=== PATIENT | female | born 1990 | race Caucasian/White ===

== ENCOUNTER 2021-07-14 10:25 | Emergency (ER) | payer BC ==
[~2021-07-14] VITALS: Ht 162.6 cm; Wt 68.2 kg
[2021-07-14 20:38] LABS: PLATELET COUNT 59 X10'3 (140-440)
[2021-07-14 20:39] LABS: HEMATOCRIT 31.5 % (35.0-45.0); MEAN CORPUSCULAR HEMOGLOBIN 29.3 PG (27.0-31.0); MEAN CORPUSCULAR VOLUME 83.9 FL (78-98); MEAN PLATELET VOLUME 9.2 FL (7.4-10.4); RED BLOOD COUNT 3.76 X10'6 (4.20-5.60); RED CELL DISTRIBUTION WIDTH 28.3 % (11.5-14.5); WHITE BLOOD COUNT 10.6 X10'3 (4.5-11.0)
[2021-07-14 20:43] LABS: ALANINE AMINOTRANSFERASE 65 U/L (12-78); ALBUMIN 2.2 G/DL (3.4-5.0); ALKALINE PHOSPHATASE 422 IU/L (46-116); AMYLASE 29 U/L (25-115); ANION GAP 10 (8-16); BILIRUBIN,TOTAL 17.1 MG/DL (0.1-1.0); BLOOD UREA NITROGEN 9 MG/DL (7-18); BUN/CREATININE RATIO 5.4 (6.6-38.0); CALCIUM 8.2 MG/DL (8.5-10.1); CHLORIDE 95 MMOL/L (99-107); CREATININE 1.66 MG/DL (0.40-0.90); LIPASE 57 U/L (73-393); SODIUM 132 MMOL/L (135-145); TOTAL CARBON DIOXIDE 27.4 MMOL/L (24-32); eGFR 36 ML/MIN
[2021-07-14 20:50] LABS: ALBUMIN/GLOBULIN RATIO 0.5 (1.1-1.5); ASPARTATE AMINO TRANSFERASE 141 U/L (10-37); GLUCOSE 107 MG/DL (70-104); POTASSIUM 3.5 MMOL/L (3.5-5.1); TOTAL PROTEIN 6.4 G/DL (6.4-8.2)
--- NOTE | 2021-07-14 20:56 | NUR ---
ASSUMED CARE OF PT. RECIEVED REPORT AND PLACED PERIPHERAL IV. PA IN ROOM.
[2021-07-14 20:58] LABS: URINE HCG NEGATIVE (NEG)
[2021-07-14 21:18] LABS: CLARITY,URINE SLIGHTLY CLOUDY (Clear); COLOR,URINE YELLOW (Yellow); UA COLLECTION TYPE NON-SPECIFIED
[2021-07-14 21:19] LABS: GLUCOSE, URINE NEGATIVE (Neg); KETONES,URINE NEGATIVE (Neg); NITRITES, URINE NEGATIVE (Neg); OCCULT BLOOD,URINE SMALL (Neg); PROTEIN,URINE 30 mg/dl (Neg)
[2021-07-14 21:20] LABS: LEUKOCYTE ESTERASE ,URINE NEGATIVE (Neg); UROBILINOGEN,URINE 0.2 E.U/dL (0.2-1.0)
[2021-07-14 21:26] LABS: MONOTEST NEGATIVE (Neg)
[2021-07-14] MEDS ORDERED: normal saline 1000ml 1,000 ML IV ONE (21:30)
[2021-07-14 21:32] LABS: HYALINE CASTS 0-3 /LPF (NEGATIVE)
[2021-07-14 21:33] LABS: BACTERIA,URINE NONE SEEN /HPF (Neg); SQUAMOUS EPITHELIAL CELL,UR FEW /LPF (FEW); WBC,URINE 0-4 /HPF (0-4)
[2021-07-14 21:58] LABS: NUCLEATED RED BLOOD CELLS 1 /100WBC (0-0); PARTIAL THROMBOPLASTIN TIME 36 SECONDS (22-32); TOTAL CELLS COUNTED 100
[2021-07-14 22:01] LABS: ANISOCYTOSIS 3+; PLATELET ESTIMATE DECREASED; TARGET CELLS 2+
[2021-07-14 22:03] LABS: SMUDGE CELLS 1+
[2021-07-14 22:05] LABS: POLYCHROMASIA FEW
[2021-07-14 22:08] LABS: LARGE PLATELETS FEW
[2021-07-14] MEDS ORDERED: piperacillin/tazo 3.375gm/50ml 50 ML IV ONE (23:50)
[2021-07-15] MEDS ORDERED: LORazepam 1 MG tablet PO PRN (00:25)
[2021-07-15] MEDS ORDERED: acetaminophen 325mg tablet PO PRN (00:25)
[2021-07-15] MEDS ORDERED: ondansetron/PF 4mg/2ml inj IV PRN (00:25)
[2021-07-15] MEDS ORDERED: normal saline 1000ml 1,000 ML IV SCH (00:25)
[2021-07-15] MEDS ORDERED: dextrose 50%-water 50ml dispensing syringe IV PRN (00:25)
[2021-07-15] MEDS ORDERED: magnesium hydroxide 30ml (MOM) UD suspension PO PRN (00:25)
[2021-07-15] MEDS ORDERED: magnesium Cl slow-release 64mg tablet PO PRN (00:25)
[2021-07-15] MEDS ORDERED: metoclopramide 5 mg/ml inj IV PRN (00:25)
[2021-07-15] MEDS ORDERED: haloperidol lactate 5mg/ml inj IM PRN (00:25)
[2021-07-15] MEDS ORDERED: morphine 2 MG/ML inj. syringe IV PRN ×2 (00:25)
[2021-07-15] MEDS ORDERED: magnesium 4gm in 100ml NS 100 ML IV PRN (00:25)
[2021-07-15] MEDS ORDERED: potassium Cl 40MEQ/1/2NS 520ml 520 ML IV PRN ×2 (00:25)
[2021-07-15] MEDS ORDERED: haloperidol 5mg tablet PO PRN (00:25)
[2021-07-15] MEDS ORDERED: potassium Cl 20 mEq SR tablet PO PRN ×2 (00:25)
[2021-07-15] MEDS ORDERED: magnesium 2GM in 50ml NS 50 ML IV PRN (00:25)
[2021-07-15] MEDS ORDERED: thiamine 100mg/ml 2ml inj. IV ONE (00:25)
[2021-07-15] MEDS ORDERED: bisacodyl 10mg suppository rectal RC PRN (00:25)
[2021-07-15] MEDS ORDERED: LORazepam 2 mg/ml vial IV PRN (00:25)
[2021-07-15] MEDS ORDERED: mag hydrox/Alum hydrox/simeth 30ml oral suspension PO PRN (00:25)
[2021-07-15] MEDS ORDERED: NO HOME MEDS (03:14)
[2021-07-15] MEDS ORDERED: multivitamins, therapeutics tablet PO SCH (08:00)
[2021-07-15] MEDS ORDERED: piperacillin/tazo 3.375gm/50ml 50 ML IV SCH (08:00)
[2021-07-15] MEDS ORDERED: K and/or MAG REPLACEMENT MC SCH (08:00)
[2021-07-15] MEDS ORDERED: folic acid 1mg tablet PO SCH (08:00)
[2021-07-15] MEDS ORDERED: docusate sod 100mg capsule PO SCH (08:00)
[2021-07-15] MEDS ORDERED: thiamine 100mg tablet PO SCH (08:00)
[2021-07-15 12:10] VITALS: BP 118/60
[2021-07-15] MEDS ORDERED: temazepam 15mg capsule PO PRN (21:00)
== END 2021-07-15 12:30 | disposition home or self-care (01) ==
LOC: ER 10:26 → UNDOADMIN 07-15 00:27 → ED HOLD 07-15 00:27 → UNDODISIN 07-15 12:44
DX: K81.0 Acute cholecystitis (principal); R17 Unspecified jaundice; E87.1 Hypo-osmolality and hyponatremia; R10.9 Unspecified abdominal pain; Z20.822 Contact with and (suspected) exposure to COVID-19
CPT/HCPCS: 36415; 74176; 76700; 80053; 81001; 81025; 82150; 83605; 83690; 84145; 85007; 85025; 85610; 85730; 86308; 87040; 87088; 87635; 93005; 96360; 99285; C9803; J2543; J3411; J7030; G0378